=== PATIENT | male | born 1960 | race Caucasian/White ===

== ENCOUNTER 2018-02-27 05:30 | Day surgery (SDC) | payer OTHER ==
[2018-02-27] VITALS (7 sets, daily range): BP systolic 88–123; BP diastolic 33–88
[~2018-02-27] VITALS: Ht 177.8 cm; Wt 76.1 kg
[~2018-02-27 05:30] MED LIST: IBUP-2353 PO; MULT-1258 PO; RANI150C4 PO
[2018-02-27] MEDS ORDERED: SODIUM CHLORIDE 0.9% 1000ML 1,000 ML IV ONE (06:23)
[2018-02-27] MEDS ORDERED: PROPOFOL 10 MG/ML 20ML VIAL IV ONE ×2 (06:24→06:25)
[2018-02-27] MEDS ORDERED: FENTANYL CITRATE PF 50 MCG/1 ML 2ML VIAL ONE (06:24)
[2018-02-27] MEDS ORDERED: LIDOCAINE HCL-MPF 2% 5ML VIAL ONE (06:25)
== END 2018-02-27 07:40 | disposition home or self-care (01) ==
LOC: DAH 05:30 → ENDO 05:30
PROVIDERS: ATTEND Internal Medicine
DX: Z12.11 Encounter for screening for malignant neoplasm of colon (principal); K63.5 Polyp of colon; K64.0 First degree hemorrhoids; K57.30 Diverticulosis of large intestine without perforation or abscess without bleeding; Z79.899 Other long term (current) drug therapy; Z98.890 Other specified postprocedural states; Z80.0 Family history of malignant neoplasm of digestive organs
CPT/HCPCS: 45380; 88305; J2704 ×2; J3010; J3490; J7030